=== PATIENT | female | born 1955 | race African-American/Black ===

== ENCOUNTER 2021-01-09 23:14 | Inpatient (IN) | payer OTHER ==
[~2021-01-09] VITALS: Ht 167.6 cm; Wt 65.8 kg
[~2021-01-09 23:14] MED LIST: ALBU2.5V13 IH; FURO-151 MT; LISI2.5T47 PO; P20 MT
[2021-01-10] MEDS ORDERED: NITROGLYCERIN 0.4MG TABLET SL SL ONE
[2021-01-10 00:21] LABS: BASOPHILS % 0.2 % (0.0-2.0); EOSINOPHILS % 0.1 % (0.0-5.0); HEMATOCRIT. 38.4 % (36.0-48.0); HEMOGLOBIN. 12.5 g/dL (12.0-16.0); LYMPHOCYTES % 8.2 % (20.0-50.0); MEAN CORPUSCULAR HEMOGLOBIN 30.7 pg (28.0-32.0); MEAN CORPUSCULAR VOLUME 94.5 fL (81.0-99.0); MEAN PLATELET VOLUME 8.1 fl (7.4-10.4); MONOCYTES % 11.1 % (2.0-8.0); NEUTROPHILS % 80.4 % (40.0-76.0); PLATELET 151 x1000/uL (130-400); RED BLOOD CELL COUNT 4.07 mill/uL (4.2-5.4); RED CELL DISTRIBUTION WIDTH 19.4 % (11.6-14.6)
[2021-01-10 00:25] LABS: CHLORIDE 106 mEq/L (98-107)
[2021-01-10] MEDS ORDERED: IPRATROPIUM BROMIDE (0.02%) 0.5MG/2.5ML NEB HHN STA (02:02)
[2021-01-10] MEDS ORDERED: ALBUTEROL (0.083%) 2.5MG/3ML NEB HHN STA (02:02)
[2021-01-10] MEDS: NITROGLYCERIN 0.1MG/HR PATCH TOP SCH ×2 (02:04→10:00)
[2021-01-10] MEDS ORDERED: LISINOPRIL 2.5MG TABLET PO ONE (02:15)
[2021-01-10] MEDS ORDERED: PREDNISONE 20MG TABLET PO ONE (02:15)
[2021-01-10] MEDS ORDERED: AZITHROMYCIN 500 MG in DEXT 5% WATER 250 ML IV ONE (02:15)
[2021-01-10] MEDS ORDERED: FUROSEMIDE 40MG/4ML VIAL IVP ONE (02:15)
[2021-01-10] MEDS ORDERED: HYDRALAZINE 20MG/ML VIAL IV PRN (08:45)
[2021-01-10] MEDS ORDERED: CLONIDINE 0.1MG TABLET PO PRN (08:45)
[2021-01-10 10:25] VITALS: BP 176/108
[2021-01-10] MEDS ORDERED: ACETAMINOPHEN 325MG TABLET PO PRN (10:30)
[2021-01-10] MEDS ORDERED: ONDANSETRON HCL 4MG/2ML INJ IV PRN (10:30)
[2021-01-10] MEDS ORDERED: IPRATROPIUM/ALBUTEROL 0.5-3(2.5)MG/3ML NEB HHN PRN (10:30)
[2021-01-10] MEDS ORDERED: MORPHINE SULFATE 2 MG/ML CPJ (NOT FOR IM USE) IV NR (10:40)
[2021-01-10] MEDS: FUROSEMIDE 40MG/4ML VIAL IVP SCH (10:50)
[2021-01-10] MEDS: AMLODIPINE 10MG TABLET PO SCH (10:50)
[2021-01-10] MEDS ORDERED: LOSARTAN POTASSIUM 50 MG TABLET PO NR (11:30)
[2021-01-10] MEDS ORDERED: ENOXAPARIN 40MG/0.4ML SYR SUBCUT SCH (13:00)
[2021-01-10 16:03] VITALS: BP 156/104
[2021-01-10 20:00] VITALS: BP 136/104
[2021-01-10] MEDS ORDERED: IOHEXOL-350 100 ML BOTTLE ONE (20:15)
[2021-01-11] VITALS: BP 162/108
[2021-01-11 04:00] VITALS: BP 142/102
[2021-01-11 08:00] VITALS: BP 139/90
[2021-01-11] MEDS: FUROSEMIDE 40MG/4ML VIAL IVP SCH (08:35)
[2021-01-11] MEDS: AMLODIPINE 10MG TABLET PO SCH (08:36)
[2021-01-11] MEDS: ENOXAPARIN 40MG/0.4ML SYR SUBCUT SCH (08:36)
[2021-01-11] MEDS: LOSARTAN POTASSIUM 50 MG TABLET PO SCH (08:36)
[2021-01-11] MEDS: NITROGLYCERIN 0.1MG/HR PATCH TOP SCH (09:40)
[2021-01-11 12:00] VITALS: BP 147/100
[2021-01-11] MEDS ORDERED: P20 PO (15:39)
[2021-01-11] MEDS ORDERED: FURO-151 MT (15:39)
[2021-01-11] MEDS ORDERED: AMLO10TA80 PO (15:39)
[2021-01-11 16:00] VITALS: BP 131/89
[2021-01-11] MEDS: PREDNISONE 20MG TABLET PO SCH (18:39)
[2021-01-11 20:00] VITALS: BP 138/90
[2021-01-12] VITALS: BP 148/96
[2021-01-12 04:00] VITALS: BP 150/93
[2021-01-12 08:00] VITALS: BP 158/106
[2021-01-12] MEDS: ENOXAPARIN 40MG/0.4ML SYR SUBCUT SCH (08:46)
[2021-01-12] MEDS: FUROSEMIDE 40MG/4ML VIAL IVP SCH (08:47)
[2021-01-12] MEDS: LOSARTAN POTASSIUM 50 MG TABLET PO SCH (08:47)
[2021-01-12] MEDS: PREDNISONE 20MG TABLET PO SCH (08:47)
[2021-01-12] MEDS: AMLODIPINE 10MG TABLET PO SCH (08:47)
[2021-01-12 09:03] VITALS: BP 141/98
== END 2021-01-12 12:22 | disposition home or self-care (01) | DRG 291 ==
LOC: ER 23:14 → MICUSO 01-10 02:21 → 6WST 01-10 07:26
PROVIDERS: ADMIT Internal Medicine; ATTEND Internal Medicine
DX: I11.0 Hypertensive heart disease with heart failure (principal); J96.21 Acute and chronic respiratory failure with hypoxia; J44.1 Chronic obstructive pulmonary disease with (acute) exacerbation; I27.20 Pulmonary hypertension, unspecified; I95.9 Hypotension, unspecified; I50.33 Acute on chronic diastolic (congestive) heart failure; I16.0 Hypertensive urgency; F17.200 Nicotine dependence, unspecified, uncomplicated; R79.89 Other specified abnormal findings of blood chemistry; Z20.822 Contact with and (suspected) exposure to COVID-19; Z79.899 Other long term (current) drug therapy; Z99.81 Dependence on supplemental oxygen; Z71.6 Tobacco abuse counseling
CPT/HCPCS: 36415; 71045; 71275; 80048; 82040; 84134; 84484; 85025; 85379; 87426; 94640; 99285; A6261; J0360; J0456; J1650; J1940; J2270; J7060; J7512; Q9967

== ENCOUNTER 2021-01-29 16:23 | Inpatient (IN) | payer OTHER ==
[~2021-01-29] VITALS: Ht 167.6 cm; Wt 66.7 kg
[~2021-01-29 16:23] MED LIST changes: +AMLO10TA80 PO; -P20 MT; +P20 PO
[2021-01-29] MEDS ORDERED: NITROGLYCERIN OINT 1GM/INCH UDPKT TD ONE (16:45)
[2021-01-29] MEDS ORDERED: FUROSEMIDE 40MG/4ML VIAL IV ONE (16:45)
[2021-01-29 17:53] LABS: D-DIMER 1.92 mg/L FEU (<0.50); PARTIAL THROMBOPLASTIN TIME 26.6 sec (23.4-31.0); PROTHROMBIN TIME 11.1 sec (9.6-11.0)
[2021-01-29 18:06] LABS: HEMOGLOBIN. 12.8 g/dL (12.0-16.0); MEAN CORPUSCULAR HEMOGLOBIN 30.9 pg (28.0-32.0); MEAN PLATELET VOLUME 7.7 fl (7.4-10.4); PLATELET 210 x1000/uL (130-400); RED BLOOD CELL COUNT 4.15 mill/uL (4.2-5.4); RED CELL DISTRIBUTION WIDTH 20.4 % (11.6-14.6)
[2021-01-29 18:10] LABS: CHLORIDE 112 mEq/L (98-107)
[2021-01-29 18:39] LABS: PLATELET ESTIMATE NORMAL
[2021-01-29] MEDS ORDERED: IOHEXOL-350 100 ML BOTTLE ONE (23:36)
[2021-01-30] MEDS ORDERED: ONDANSETRON HCL 4MG/2ML INJ IV PRN (21:45)
[2021-01-30] MEDS ORDERED: DOCUSATE SODIUM 100MG CAPSULE PO PRN (21:45)
[2021-01-30] MEDS ORDERED: CLONIDINE 0.1MG TABLET PO PRN (21:45)
[2021-01-30 22:00] VITALS: BP 137/92
[2021-01-30] MEDS: FUROSEMIDE 40MG/4ML VIAL IVP SCH (22:33)
[2021-01-30] MEDS: ENOXAPARIN 40MG/0.4ML SYR SUBCUT SCH (22:34)
[2021-01-30] MEDS: AMLODIPINE 10MG TABLET PO SCH (22:34)
[2021-01-30] MEDS: LISINOPRIL 2.5MG TABLET PO SCH (22:35)
[2021-01-31] VITALS: BP 120/69
[2021-01-31 00:15] LABS: BASOPHILS % 0.7 % (0.0-2.0); HEMATOCRIT. 38.1 % (36.0-48.0); HEMOGLOBIN. 12.8 g/dL (12.0-16.0); LYMPHOCYTES % 24.4 % (20.0-50.0); MEAN CORPUSCULAR HEMOGLOBIN 31.3 pg (28.0-32.0); MEAN CORPUSCULAR VOLUME 93.3 fL (81.0-99.0); MEAN PLATELET VOLUME 7.7 fl (7.4-10.4); MONOCYTES % 13.3 % (2.0-8.0); NEUTROPHILS % 59.6 % (40.0-76.0); PLATELET 207 x1000/uL (130-400); RED BLOOD CELL COUNT 4.08 mill/uL (4.2-5.4); RED CELL DISTRIBUTION WIDTH 20.6 % (11.6-14.6)
[2021-01-31 00:17] LABS: CHLORIDE 104 mEq/L (98-107)
[2021-01-31 00:27] LABS: CREATINE KINASE 29 IU/L (26-192)
[2021-01-31] MEDS: IPRATROPIUM/ALBUTEROL 0.5-3(2.5)MG/3ML NEB HHN SCH ×5 (02:52→20:50)
[2021-01-31 03:31] LABS: CREATINE KINASE MB FRACTION 1.3 ng/mL (0.5-3.6)
[2021-01-31 04:00] VITALS: BP 125/86
[2021-01-31] MEDS: ACETAMINOPHEN 325MG TABLET PO PRN (05:54)
[2021-01-31] MEDS: OMEPRAZOLE 20MG CAPSULE EXTENDED RELEASE PO SCH (05:54)
[2021-01-31 06:57] LABS: CREATINE KINASE 42 IU/L (26-192)
[2021-01-31 06:58] LABS: CREATINE KINASE MB FRACTION 1.4 ng/mL (0.5-3.6)
[2021-01-31 08:00] VITALS: BP 129/90
[2021-01-31] MEDS: FUROSEMIDE 40MG/4ML VIAL IVP SCH ×2 (09:39→20:56)
[2021-01-31] MEDS: LISINOPRIL 2.5MG TABLET PO SCH (09:40)
[2021-01-31] MEDS: AMLODIPINE 10MG TABLET PO SCH (09:40)
[2021-01-31 12:00] VITALS: BP 110/91
[2021-01-31 12:48] LABS: BG BASE EXCESS 4.4 mmol/L (-2.0-2.0); BG CARBOXYHEMOGLOBIN 1.1 % (0.5-1.5); BG DEOXYHEMOGLOBIN 32.9 % (0.0-5.0); BG FRACTION INSPIRED OXYGEN 21; BG HCO3 ACT 28.4 mmol/L (22.0-26.0); BG METHEMOGLOBIN 0.1 % (0.0-1.5); BG OXYGEN SATURATION 66.7 % (92.0-98.5); BG OXYHEMOGLOBIN 65.9 % (94.0-97.0); BG PH 7.469 (7.350-7.450); BG PO2 32.5 mmHg (75.0-100.0); BG SAMPLE SITE RIGHT RADIAL; BG TOTAL HEMOGLOBIN 14.1 g/dL (12.0-18.0); BG VENT MODE ROOM AIR
[2021-01-31] MEDS: METHYLPREDNISOLONE SOD SUCC 40 MG/ML VIAL IV SCH ×2 (13:40→21:44)
[2021-01-31 16:00] VITALS: BP 105/67
[2021-01-31 20:00] VITALS: BP 116/79
[2021-01-31] MEDS: ENOXAPARIN 40MG/0.4ML SYR SUBCUT SCH (20:56)
[2021-02-01] VITALS: BP 107/70
[2021-02-01 04:00] VITALS: BP 130/80
[2021-02-01] MEDS: IPRATROPIUM/ALBUTEROL 0.5-3(2.5)MG/3ML NEB HHN SCH ×5 (04:01→19:51)
[2021-02-01] MEDS: METHYLPREDNISOLONE SOD SUCC 40 MG/ML VIAL IV SCH ×3 (05:30→21:33)
[2021-02-01] MEDS: OMEPRAZOLE 20MG CAPSULE EXTENDED RELEASE PO SCH (06:15)
[2021-02-01 08:00] VITALS: BP 129/87
[2021-02-01] MEDS: FUROSEMIDE 40MG/4ML VIAL IVP SCH ×2 (09:09→21:47)
[2021-02-01] MEDS: LISINOPRIL 2.5MG TABLET PO SCH (09:13)
[2021-02-01] MEDS: AMLODIPINE 10MG TABLET PO SCH (09:14)
[2021-02-01] MEDS: ACETAMINOPHEN 325MG TABLET PO PRN ×2 (09:14→21:34)
[2021-02-01 10:03] LABS: BASOPHILS % 0.1 % (0.0-2.0); HEMOGLOBIN. 12.5 g/dL (12.0-16.0); LYMPHOCYTES % 16.8 % (20.0-50.0); MEAN CORPUSCULAR HEMOGLOBIN 30.9 pg (28.0-32.0); MEAN CORPUSCULAR VOLUME 93.7 fL (81.0-99.0); MEAN PLATELET VOLUME 7.9 fl (7.4-10.4); MONOCYTES % 5.3 % (2.0-8.0); NEUTROPHILS % 77.8 % (40.0-76.0); PLATELET 235 x1000/uL (130-400); RED BLOOD CELL COUNT 4.05 mill/uL (4.2-5.4); RED CELL DISTRIBUTION WIDTH 20.2 % (11.6-14.6)
[2021-02-01 10:14] LABS: CHLORIDE 98 mEq/L (98-107)
[2021-02-01] MEDS ORDERED: MORPHINE SULFATE 2 MG/ML CPJ (NOT FOR IM USE) IV NR (10:45)
[2021-02-01 11:01] LABS: BG CARBOXYHEMOGLOBIN 0.9 % (0.5-1.5); BG DEOXYHEMOGLOBIN 10.2 % (0.0-5.0); BG FRACTION INSPIRED OXYGEN 44; BG HCO3 ACT 27.6 mmol/L (22.0-26.0); BG METHEMOGLOBIN 0.2 % (0.0-1.5); BG OXYGEN SATURATION 89.7 % (92.0-98.5); BG OXYHEMOGLOBIN 88.7 % (94.0-97.0); BG PCO2 42.4 mmHg (35.0-45.0); BG PH 7.432 (7.350-7.450); BG PO2 56.9 mmHg (75.0-100.0); BG SAMPLE SITE RIGHT RADIAL; BG TOTAL HEMOGLOBIN 13.5 g/dL (12.0-18.0); BG VENT MODE NASAL CANNULA
[2021-02-01 12:00] VITALS: BP 134/89
[2021-02-01 16:00] VITALS: BP 126/83
[2021-02-01 20:00] VITALS: BP 122/79
[2021-02-01] MEDS: ENOXAPARIN 40MG/0.4ML SYR SUBCUT SCH (21:33)
[2021-02-02] VITALS: BP 126/77
[2021-02-02] MEDS: IPRATROPIUM/ALBUTEROL 0.5-3(2.5)MG/3ML NEB HHN SCH ×4 (00:07→20:31)
[2021-02-02 04:00] VITALS: BP 126/84
[2021-02-02] MEDS: METHYLPREDNISOLONE SOD SUCC 40 MG/ML VIAL IV SCH ×2 (06:08→16:02)
[2021-02-02] MEDS: OMEPRAZOLE 20MG CAPSULE EXTENDED RELEASE PO SCH (06:08)
[2021-02-02] MEDS: ACETAMINOPHEN 325MG TABLET PO PRN (06:18)
[2021-02-02 08:00] VITALS: BP 151/99
[2021-02-02 08:01] LABS: CHLORIDE 101 mEq/L (98-107)
[2021-02-02 08:07] LABS: HEMATOCRIT. 43.3 % (36.0-48.0); HEMOGLOBIN. 13.6 g/dL (12.0-16.0); LYMPHOCYTES % 8.2 % (20.0-50.0); MEAN CORPUSCULAR HEMOGLOBIN 30.5 pg (28.0-32.0); MEAN PLATELET VOLUME 8.3 fl (7.4-10.4); MONOCYTES % 7.9 % (2.0-8.0); NEUTROPHILS % 83.9 % (40.0-76.0); PLATELET 172 x1000/uL (130-400); RED BLOOD CELL COUNT 4.46 mill/uL (4.2-5.4); RED CELL DISTRIBUTION WIDTH 20.2 % (11.6-14.6)
[2021-02-02] MEDS: FUROSEMIDE 40MG/4ML VIAL IVP SCH (08:46)
[2021-02-02] MEDS: AMLODIPINE 10MG TABLET PO SCH (08:46)
[2021-02-02] MEDS: LISINOPRIL 2.5MG TABLET PO SCH (08:46)
[2021-02-02 12:00] VITALS: BP 133/82
[2021-02-02] MEDS ORDERED: P20 PO (13:54)
[2021-02-02] MEDS ORDERED: IPRA3AMP9 HHN (13:56)
[2021-02-02 16:56] VITALS: BP 126/83
== END 2021-02-02 21:23 | disposition home or self-care (01) | DRG 291 ==
LOC: ER 16:23 → MICUSO 19:45 → CANRESERV 22:31 → ENRESERV 22:31 → 8WST 01-30 19:36
PROVIDERS: ADMIT Internal Medicine; ATTEND Internal Medicine
DX: I11.0 Hypertensive heart disease with heart failure (principal); J96.21 Acute and chronic respiratory failure with hypoxia; J44.1 Chronic obstructive pulmonary disease with (acute) exacerbation; I50.23 Acute on chronic systolic (congestive) heart failure; Z20.822 Contact with and (suspected) exposure to COVID-19; I27.20 Pulmonary hypertension, unspecified; Z79.899 Other long term (current) drug therapy; I27.21 Secondary pulmonary arterial hypertension
CPT/HCPCS: 36415; 36600; 71045; 78580; 80048; 80053; 82375; 82550; 82553; 82805; 83880; 84484; 85025; 85379; 87426; 93005; 94640; 99285; J1650; J1940; J2270; J2920; Q9967